=== PATIENT | female | born 1985 | race Caucasian/White ===

== ENCOUNTER 2019-10-29 15:37 | Emergency (ER) | payer BC, SELFPAY ==
[2019-10-29 15:43] VITALS: BP 135/106; PULSE 94; RESP 18; TEMP 36.7; O2SAT 98; BMI 33.0
--- NOTE | 2019-10-29 15:46 | W.ED.SKABFB ---
Documented by User: MAY Alan 10/30/19 07:46 HPI - Skin/Abscess/Foreign Bdy General: Chief complaint: Skin/Abscess/Foreign Body Stated complaint: chin abscess x 5 days Time Seen by Provider: 10/29/19 15:41 Source: patient Mode of arrival: ambulatory Limitations: no limitations History of Present Illness: HPI narrative: Patient is a 34-year-old female who presents to ED today with complaints of a chin abscess; patient states she first noticed abscess approximately a week ago; she was initially put on Bactrim by her PCP but could not keep medication down due to nausea and vomiting; she was subsequently switched to Keflex but this does not seem to be improving her abscess; she was seen in urgent care today and told to come to the emergency department for further evaluation; patient has no history of staph/MRSA; she reports the redness from the abscess is now began to spread down her neck MD complaint: abscess/boil Onset (ago): day(s) Tetanus up to date: yes Location: face Pain Consistency: constant Relieving factors: none Exacerbating factors: none Context: none Associated symptoms: Reports no associated symptoms; Deny chills, fever(s), nausea or vomiting Treatments prior to arrival: antibiotic Review of Systems Const: Denies: fever, chills, body aches, fatigue or malaise Eyes: Denies: change in vision, blurry vision, blind spots, photophobia, eye discomfort, eye redness or floaters ENMT: Denies: throat pain, uvular edema, enlarged tonsils, painful swallowing, hoarseness, mouth pain, swelling of lips/tongue, oral sores/lesions, dental pain, ear pain, ear discharge, tinnitus, nasal discharge, nasal congestion, nasal obstruction, post nasal drip or facial/sinus pain Card: Denies: chest pain GI: Denies: nausea or vomiting Skin/Breast: Reports: other (Abscess to chin) PFSH ED PFSH: Statuses (acute, chronic, etc) shown below reflect problem list status as previously entered and may not be historically accurate Social History Smoking and tobacco status: never smoked Physical Exam Const: COMMON NORMALS: no apparent distress, average body habitus, oriented x3, no limitations, alert and well nourished HENMT: COMMON NORMALS: normocephalic, head/scalp atraumatic, hearing grossly normal bilaterally, external ears normal, external nose normal, nasal mucous membranes and turbinates normal, moist oral mucous membranes, oropharynx normal, dentition normal and gingiva normal HEAD & SCALP: normocephalic and atraumatic FACE & SINUS: other (Patient has large golf ball sized abscess to her chin w/o obvious fluctuance) NOSE: external nose normal and nasal mucous membranes and turbinates normal EXTERNAL EAR: Yes external ears normal MOUTH: oral and palatal mucosa normal, lip normal and tongue normal THROAT: posterior oropharynx normal, tonsils normal and uvula midline; no uvular edema OTHER: She has erythema overlying the abscess and extending down into the anterior portion of her neck; no lymphadenopathy; patient does not have complaints of difficulty or painful swallowing, difficulty breathing, stridor Neuro: COMMON NORMALS: oriented x3 SENSORIUM/ORIENTATION: Yes alert Course Vital Signs: Vital signs: Vital Signs Temperature 98.1 F 10/29/19 15:43 Pulse Rate 76 10/29/19 19:04 Respiratory Rate 16 10/29/19 19:04 Blood Pressure 145/70 10/29/19 19:04 Pulse Oximetry 98 10/29/19 19:04 MDM - Skin/Abscess/Foreign Bdy Lab Data: Labs: Lab Results 10/29/19 10/29/19 Range/Units 16:14 16:14 WBC 14.0 H (4.0-10.0) 10^3/ uL RBC 4.71 (4.1-5.3) 10^6/u L Hgb 14.0 (11.5-15.3) g/dL Hct 42.0 (37.0-47.0) % MCV 89.2 (81-99) fL MCH 29.7 (28.0-34.0) pg MCHC 33.3 (30.0-36.0) g/dL RDW 12.2 (12.1-15.1) % Plt Count 360 (130-400) 10^3/c mm MPV 9.9 (7.4-10.4) fL Neut % (Auto) 61.7 % Lymph % (Auto) 24.7 % [place] % (Auto) 7.1 % Eos % (Auto) 5.1 % Baso % (Auto) 0.9 % Neut # (Auto) 8.6 H (1.8-7.7) 10^3/u L Lymph # (Auto) 3.5 (0.8-4.8) 10^3/u L [place] # (Auto) 1.0 H (0.2-0.9) 10^3/u L Eos # (Auto) 0.7 (0.0-0.8) 10^3/u L Baso # (Auto) 0.1 (0.0-0.1) 10^3/u L Nucleated RBC % (a uto) 0 % Nucleated RBCs # 0.0 /100WBC Sodium 140 (136-145) mmol/L Potassium 3.4 L (3.5-5.1) mmol/L Chloride 100 (98-107) mmol/L Carbon Dioxide 26 (22-29) mmol/L Anion Gap 17.4 (5-19) BUN 4 L (6-20) mg/dL Creatinine 0.9 (0.5-0.9) mg/dL GFR Calculation 71.7 L (90-130) mL/min Glucose 118 H (74-109) mg/dL Calculated Osmolal ity 287 (285-295) mOsm/k g Calcium 9.6 (8.5-10.5) mg/dL Discharge Plan Discharge Patient Disposition: Home, Self-Care Clinical Impression: Abscess of skin or subcutaneous tissue Qualifiers: Site of cutaneous abscess: face Qualified Code(s): L02.01 - Cutaneous abscess of face Condition: Stable Prescriptions: New Bactrim DS 800-160 mg tablet 1 tab PO BID 10 Days Qty: 20 RF: 0 clindamycin HCl 300 mg capsule 300 mg PO Q8H 10 Days Qty: 30 RF: 0 [place] 7.5-325 mg tablet 1 tab PO Q8H Qty: 10 RF: 0 No Action duloxetine [Cymbalta] 60 mg capsule,delayed release(DR/EC) 60 mg PO DAILY RF: 0 cephalexin 500 mg capsule 500 mg PO TID RF: 0 mupirocin 2 % ointment 1 applic TOPICAL DIRECTED RF: 0 Discharge Orders: Discharge Order (Routine); Ordered 10/29/19 Ordered By: Ariella Boo Referrals: Crista Hernandez MD [Primary Care Provider] - 4-7 days Discharge Diet: Advance as tolerated Discharge Activity: Resume usual activity Patient Instructions: Abscess (ED) Discharge Date/Time: 10/29/19 19:05 Coding Level of Care Code ED Activity Leader for Chg Fwd Exam Problem Focused Documented by User: GARCIA Fletcher 10/29/19 18:53 HPI - Skin/Abscess/Foreign Bdy General: Chief complaint: Skin/Abscess/Foreign Body Stated complaint: chin abscess x 5 days Time Seen by Provider: 10/29/19 15:41 PFSH ED PFSH: Statuses (acute, chronic, etc) shown below reflect problem list status as previously entered and may not be historically accurate Social History Smoking and tobacco status: never smoked Course ED course: 1700, received patient from [facility] Hanna, awaiting CT for abscess concern. wjw 1730, Dr. Boo graciously requested to continue care of patient for I&D procedure and discharge. wjw Vital Signs: Vital signs: Vital Signs Temperature 98.1 F 10/29/19 15:43 Pulse Rate 76 10/29/19 19:04 Respiratory Rate 16 10/29/19 19:04 Blood Pressure 145/70 10/29/19 19:04 Pulse Oximetry 98 10/29/19 19:04 MDM - Skin/Abscess/Foreign Bdy Lab Data: Labs: Lab Results 10/29/19 10/29/19 Range/Units 16:14 16:14 WBC 14.0 H (4.0-10.0) 10^3/ uL RBC 4.71 (4.1-5.3) 10^6/u L Hgb 14.0 (11.5-15.3) g/dL Hct 42.0 (37.0-47.0) % MCV 89.2 (81-99) fL MCH 29.7 (28.0-34.0) pg MCHC 33.3 (30.0-36.0) g/dL RDW 12.2 (12.1-15.1) % Plt Count 360 (130-400) 10^3/c mm MPV 9.9 (7.4-10.4) fL Neut % (Auto) 61.7 % Lymph % (Auto) 24.7 % [place] % (Auto) 7.1 % Eos % (Auto) 5.1 % Baso % (Auto) 0.9 % Neut # (Auto) 8.6 H (1.8-7.7) 10^3/u L Lymph # (Auto) 3.5 (0.8-4.8) 10^3/u L [place] # (Auto) 1.0 H (0.2-0.9) 10^3/u L Eos # (Auto) 0.7 (0.0-0.8) 10^3/u L Baso # (Auto) 0.1 (0.0-0.1) 10^3/u L Nucleated RBC % (a uto) 0 % Nucleated RBCs # 0.0 /100WBC Sodium 140 (136-145) mmol/L Potassium 3.4 L (3.5-5.1) mmol/L Chloride 100 (98-107) mmol/L Carbon Dioxide 26 (22-29) mmol/L Anion Gap 17.4 (5-19) BUN 4 L (6-20) mg/dL Creatinine 0.9 (0.5-0.9) mg/dL GFR Calculation 71.7 L (90-130) mL/min Glucose 118 H (74-109) mg/dL Calculated Osmolal ity 287 (285-295) mOsm/k g Calcium 9.6 (8.5-10.5) mg/dL Discharge Plan Discharge Patient Disposition: Home, Self-Care Clinical Impression: Abscess of skin or subcutaneous tissue Qualifiers: Site of cutaneous abscess: face Qualified Code(s): L02.01 - Cutaneous abscess of face Condition: Stable Prescriptions: New Bactrim DS 800-160 mg tablet 1 tab PO BID 10 Days Qty: 20 RF: 0 clindamycin HCl 300 mg capsule 300 mg PO Q8H 10 Days Qty: 30 RF: 0 [place] 7.5-325 mg tablet 1 tab PO Q8H Qty: 10 RF: 0 No Action duloxetine [Cymbalta] 60 mg capsule,delayed release(DR/EC) 60 mg PO DAILY RF: 0 cephalexin 500 mg capsule 500 mg PO TID RF: 0 mupirocin 2 % ointment 1 applic TOPICAL DIRECTED RF: 0 Discharge Orders: Discharge Order (Routine); Ordered 10/29/19 Ordered By: Ariella Boo Referrals: Crista Hernandez MD [Primary Care Provider] - 4-7 days Discharge Diet: Advance as tolerated Discharge Activity: Resume usual activity Patient Instructions: Abscess (ED) Discharge Date/Time: 10/29/19 19:05 Coding Level of Care Code ED Activity Leader for Chg Fwd Exam Problem Focused Documented by User: Ariella Boo MD 10/29/19 17:35 HPI - Skin/Abscess/Foreign Bdy General: Chief complaint: Skin/Abscess/Foreign Body Stated complaint: chin abscess x 5 days Time Seen by Provider: 10/29/19 15:41 PFSH ED PFSH: Statuses (acute, chronic, etc) shown below reflect problem list status as previously entered and may not be historically accurate Social History Smoking and tobacco status: never smoked Course Vital Signs: Vital signs: Vital Signs Temperature 98.1 F 10/29/19 15:43 Pulse Rate 76 10/29/19 19:04 Respiratory Rate 16 10/29/19 19:04 Blood Pressure 145/70 10/29/19 19:04 Pulse Oximetry 98 10/29/19 19:04 MDM - Skin/Abscess/Foreign Bdy Lab Data: Labs: Lab Results 10/29/19 10/29/19 Range/Units 16:14 16:14 WBC 14.0 H (4.0-10.0) 10^3/ uL RBC 4.71 (4.1-5.3) 10^6/u L Hgb 14.0 (11.5-15.3) g/dL Hct 42.0 (37.0-47.0) % MCV 89.2 (81-99) fL MCH 29.7 (28.0-34.0) pg MCHC 33.3 (30.0-36.0) g/dL RDW 12.2 (12.1-15.1) % Plt Count 360 (130-400) 10^3/c mm MPV 9.9 (7.4-10.4) fL Neut % (Auto) 61.7 % Lymph % (Auto) 24.7 % [place] % (Auto) 7.1 % Eos % (Auto) 5.1 % Baso % (Auto) 0.9 % Neut # (Auto) 8.6 H (1.8-7.7) 10^3/u L Lymph # (Auto) 3.5 (0.8-4.8) 10^3/u L [place] # (Auto) 1.0 H (0.2-0.9) 10^3/u L Eos # (Auto) 0.7 (0.0-0.8) 10^3/u L Baso # (Auto) 0.1 (0.0-0.1) 10^3/u L Nucleated RBC % (a uto) 0 % Nucleated RBCs # 0.0 /100WBC Sodium 140 (136-145) mmol/L Potassium 3.4 L (3.5-5.1) mmol/L Chloride 100 (98-107) mmol/L Carbon Dioxide 26 (22-29) mmol/L Anion Gap 17.4 (5-19) BUN 4 L (6-20) mg/dL Creatinine 0.9 (0.5-0.9) mg/dL GFR Calculation 71.7 L (90-130) mL/min Glucose 118 H (74-109) mg/dL Calculated Osmolal ity 287 (285-295) mOsm/k g Calcium 9.6 (8.5-10.5) mg/dL Imaging Data^: ct neck: Radiologist's impression: Ordering Provider/Ordering MD: Ally Downing Date of Service: 10/29/19 Procedure(s): CT neck w con* [id number] Accession Number(s): [id number] Report Number: [id number] PROCEDURE INFORMATION: Exam: CT Neck With Contrast Exam date and time: 10/29/2019 4:10 PM Age: 34 years old Clinical indication: Abscess, cutaneous; Patient HX: Abscess to chin x 5 days; Additional info: Chin abscess; Get from chin down please TECHNIQUE: Imaging protocol: Computed tomography images of the neck with intravenous contrast. Total DLP: 606.6 mGy-cm Radiation optimization: All CT scans at this facility use at least one of these dose optimization techniques: automated exposure control; mA and/or kV adjustment per patient size (includes targeted exams where dose is matched to clinical indication); or iterative reconstruction. Contrast material: OMNI 300; Contrast volume: 95 ml; Contrast route: 20G; COMPARISON: No relevant prior studies available. FINDINGS: Sinuses: Small polyp versus retention cyst in the right maxillary sinus. Prominent bilateral submandibular lymph nodes are most likely reactive. Nasopharynx: Unremarkable. Oropharynx: Unremarkable. No significant tonsillar enlargement. Hypopharynx: Unremarkable Larynx: Unremarkable. Normal epiglottis. Retropharyngeal space: Unremarkable. Submandibular/Parotid glands: Normal. Glands are normal in size. Thyroid: Normal. No enlarged or calcified nodules. Lymph nodes: See Sinuses Finding. Trachea: Visualized trachea is unremarkable. Lungs: Unremarkable as visualized. Dental: The lower teeth appear intact. No periapical infection visualized. Bones/joints: Unremarkable. No acute fracture. Soft tissues: Skin thickening and subcutaneous soft tissue stranding anterior to the mandible. 0.8 cm oval subcutaneous abscess extending to the anterior skin surface, just to the right of midline. CT/CT neck w con* [id number] IMPRESSION: 1. 0.8 cm subcutaneous abscess and surrounding cellulitis in the premandibular soft tissues. 2. Reactive submandibular lymph nodes Discharge Plan Discharge Patient Disposition: Home, Self-Care Clinical Impression: Abscess of skin or subcutaneous tissue Qualifiers: Site of cutaneous abscess: face Qualified Code(s): L02.01 - Cutaneous abscess of face Condition: Stable Prescriptions: New Bactrim DS 800-160 mg tablet 1 tab PO BID 10 Days Qty: 20 RF: 0 clindamycin HCl 300 mg capsule 300 mg PO Q8H 10 Days Qty: 30 RF: 0 [place] 7.5-325 mg tablet 1 tab PO Q8H Qty: 10 RF: 0 No Action duloxetine [Cymbalta] 60 mg capsule,delayed release(DR/EC) 60 mg PO DAILY RF: 0 cephalexin 500 mg capsule 500 mg PO TID RF: 0 mupirocin 2 % ointment 1 applic TOPICAL DIRECTED RF: 0 Discharge Orders: Discharge Order (Routine); Ordered 10/29/19 Ordered By: Ariella Boo Referrals: Crista Hernandez MD [Primary Care Provider] - 4-7 days Discharge Diet: Advance as tolerated Discharge Activity: Resume usual activity Patient Instructions: Abscess (ED) Discharge Date/Time: 10/29/19 19:05 Coding Level of Care Code ED Activity Leader for Chg Fwd Exam Problem Focused
--- NOTE | 2019-10-29 15:55 | CTR_ITS ---
PROCEDURE INFORMATION: Exam: CT Neck With Contrast Exam date and time: 10/29/2019 4:10 PM Age: 34 years old Clinical indication: Abscess, cutaneous; Patient HX: Abscess to chin x 5 days; Additional info: Chin abscess; Get from chin down please TECHNIQUE: Imaging protocol: Computed tomography images of the neck with intravenous contrast. Total DLP: 606.6 mGy-cm Radiation optimization: All CT scans at this facility use at least one of these dose optimization techniques: automated exposure control; mA and/or kV adjustment per patient size (includes targeted exams where dose is matched to clinical indication); or iterative reconstruction. Contrast material: [place]NI 300; Contrast volume: 95 ml; Contrast route: 20G; COMPARISON: No relevant prior studies available. FINDINGS: Sinuses: Small polyp versus retention cyst in the right maxillary sinus. Prominent bilateral submandibular lymph nodes are most likely reactive. Nasopharynx: Unremarkable. Oropharynx: Unremarkable. No significant tonsillar enlargement. Hypopharynx: Unremarkable Larynx: Unremarkable. Normal epiglottis. Retropharyngeal space: Unremarkable. Submandibular/Parotid glands: Normal. Glands are normal in size. Thyroid: Normal. No enlarged or calcified nodules. Lymph nodes: See Sinuses Finding. Trachea: Visualized trachea is unremarkable. Lungs: Unremarkable as visualized. Dental: The lower teeth appear intact. No periapical infection visualized. Bones/joints: Unremarkable. No acute fracture. Soft tissues: Skin thickening and subcutaneous soft tissue stranding anterior to the mandible. 0.8 cm oval subcutaneous abscess extending to the anterior skin surface, just to the right of midline. CT/CT neck w con* [id number] IMPRESSION: 1. 0.8 cm subcutaneous abscess and surrounding cellulitis in the premandibular soft tissues. 2. Reactive submandibular lymph nodes. Radiation Dose CTDIVOL = (mGy): DLP = 606.6 (mGy-cm)
[2019-10-29 16:22] LABS: Basophils # 0.1 10^3/uL (0.0-0.1); Basophils % 0.9 %; Eosinophils # 0.7 10^3/uL (0.0-0.8); Eosinophils % 5.1 %; Lymphocytes # 3.5 10^3/uL (0.8-4.8); Lymphocytes % 24.7 %; Mean Corpuscular HGB Conc 33.3 g/dL (30.0-36.0); Mean Corpuscular Hemoglobin 29.7 pg (28.0-34.0); Mean Corpuscular Volume 89.2 fL (81-99); Mean Platelet Volume 9.9 fL (7.4-10.4); Monocytes % 7.1 %; Neutrophils # 8.6 10^3/uL (1.8-7.7); Neutrophils % 61.7 %; Nucleated Red Blood Cells % 0 %; Platelet Count 360 10^3/cmm (130-400); Red Blood Count 4.71 10^6/uL (4.1-5.3); Red Cell Distribution Width 12.2 % (12.1-15.1)
[2019-10-29] MEDS: vancomycin 1,000 MG in sodium chloride 0.9% 250 ML 250 MG IV (16:29)
[2019-10-29] MEDS: iohexol 300 mg/mL 100 mL Btl IV (16:36)
[2019-10-29 16:41] LABS: Anion Gap 17.4 (5-19); Blood Urea Nitrogen 4 mg/dL (6-20); Calcium 9.6 mg/dL (8.5-10.5); Carbon Dioxide 26 mmol/L (22-29); Chloride 100 mmol/L (98-107); Glomerular Filtration Rate 71.7 mL/min (90-130); Glucose 118 mg/dL (74-109); Osmolality Calculated 287 mOsm/kg (285-295); Potassium 3.4 mmol/L (3.5-5.1); Sodium 140 mmol/L (136-145)
[2019-10-29] MEDS: LORazepam 2 mg/mL INJ 1 mL 1 MG IVP (17:47)
[2019-10-29 18:26] VITALS: RESP 18; O2SAT 96
[2019-10-29] MEDS: morphine 4 mg/mL SDV 1 mL IVP (18:26)
[2019-10-29] MEDS: ondansetron 2 mg/ML SDV 2 mL 4 MG IVP (18:27)
[2019-10-29 19:04] VITALS: BP 145/70; PULSE 76; RESP 16; O2SAT 98
--- NOTE | 2019-10-30 13:20 | W.ED.SKABFB ---
HPI - Skin/Abscess/Foreign Bdy General: Chief complaint: Skin/Abscess/Foreign Body Stated complaint: chin abscess x 5 days Time Seen by Provider: 10/29/19 15:41 Source: patient Mode of arrival: ambulatory Limitations: no limitations History of Present Illness: MD complaint: abscess/boil Location: face Relieving factors: none Exacerbating factors: none PFSH ED PFSH: Statuses (acute, chronic, etc) shown below reflect problem list status as previously entered and may not be historically accurate Social History Smoking and tobacco status: never smoked Procedures Abscess I/D Site: face Local Anesthetic: lidocaine 1% Amount of anesthesia used (mL): 6 Technique: incised with #11 blade Irrigation: Yes Packing used?: none Complications: pain Course Vital Signs: Vital signs: Vital Signs Temperature 98.1 F 10/29/19 15:43 Pulse Rate 76 10/29/19 19:04 Respiratory Rate 16 10/29/19 19:04 Blood Pressure 145/70 10/29/19 19:04 Pulse Oximetry 98 10/29/19 19:04 MDM - Skin/Abscess/Foreign Bdy MDM Narrative: Medical decision making narrative: Pt presents here with abscess to anterior chin. the abscess was incisde and drained. pt is to take clindamycin. pt stable for discharge. Lab Data: Labs: Lab Results 10/29/19 10/29/19 Range/Units 16:14 16:14 WBC 14.0 H (4.0-10.0) 10^3/ uL RBC 4.71 (4.1-5.3) 10^6/u L Hgb 14.0 (11.5-15.3) g/dL Hct 42.0 (37.0-47.0) % MCV 89.2 (81-99) fL MCH 29.7 (28.0-34.0) pg MCHC 33.3 (30.0-36.0) g/dL RDW 12.2 (12.1-15.1) % Plt Count 360 (130-400) 10^3/c mm MPV 9.9 (7.4-10.4) fL Neut % (Auto) 61.7 % Lymph % (Auto) 24.7 % [place] % (Auto) 7.1 % Eos % (Auto) 5.1 % Baso % (Auto) 0.9 % Neut # (Auto) 8.6 H (1.8-7.7) 10^3/u L Lymph # (Auto) 3.5 (0.8-4.8) 10^3/u L [place] # (Auto) 1.0 H (0.2-0.9) 10^3/u L Eos # (Auto) 0.7 (0.0-0.8) 10^3/u L Baso # (Auto) 0.1 (0.0-0.1) 10^3/u L Nucleated RBC % (a uto) 0 % Nucleated RBCs # 0.0 /100WBC Sodium 140 (136-145) mmol/L Potassium 3.4 L (3.5-5.1) mmol/L Chloride 100 (98-107) mmol/L Carbon Dioxide 26 (22-29) mmol/L Anion Gap 17.4 (5-19) BUN 4 L (6-20) mg/dL Creatinine 0.9 (0.5-0.9) mg/dL GFR Calculation 71.7 L (90-130) mL/min Glucose 118 H (74-109) mg/dL Calculated Osmolal ity 287 (285-295) mOsm/k g Calcium 9.6 (8.5-10.5) mg/dL Discharge Plan Discharge Patient Disposition: Home, Self-Care Clinical Impression: Abscess of skin or subcutaneous tissue Qualifiers: Site of cutaneous abscess: face Qualified Code(s): L02.01 - Cutaneous abscess of face Condition: Stable Prescriptions: New Bactrim DS 800-160 mg tablet 1 tab PO BID 10 Days Qty: 20 RF: 0 clindamycin HCl 300 mg capsule 300 mg PO Q8H 10 Days Qty: 30 RF: 0 [place] 7.5-325 mg tablet 1 tab PO Q8H Qty: 10 RF: 0 No Action duloxetine [Cymbalta] 60 mg capsule,delayed release(DR/EC) 60 mg PO DAILY RF: 0 cephalexin 500 mg capsule 500 mg PO TID RF: 0 mupirocin 2 % ointment 1 applic TOPICAL DIRECTED RF: 0 Discharge Orders: Discharge Order (Routine); Ordered 10/29/19 Ordered By: Ariella Boo Referrals: Crista Hernandez MD [Primary Care Provider] - 4-7 days Discharge Diet: Advance as tolerated Discharge Activity: Resume usual activity Patient Instructions: Abscess (ED) Discharge Date/Time: 10/29/19 19:05 Coding Level of Care Code ED Sr. [employer] System Administrator for Olu Galarza
== END 2019-10-29 19:05 | disposition home or self-care (01) ==
PROVIDERS: Physician Assistant; Emergency Provider Emergency Medicine; PCP Family Medicine
DX: L02.01 Cutaneous abscess of face (principal)
CPT/HCPCS: 10060; 36415; 70491; 80048; 85025; 87070; 87077; 87186; 96365; 96372; 96374; 96375; 99282; 99283; J2001; J2060; J2270; J2405; J3370; J7050; Q9967

== ENCOUNTER → 2022-07-21 10:17 | Outpatient (BNVA) | payer BC, SELFPAY | PROVIDERS: PCP Family Medicine; Visit Provider Nurse Practitioner Family | DX: R10.9 Unspecified abdominal pain (principal); R11.10 Vomiting, unspecified; R42 Dizziness and giddiness; R73.09 Other abnormal glucose | CPT/HCPCS: 80053; 81000; 83036; 85025; 86003; 86008 ==

== ENCOUNTER → 2025-04-26 08:30 | Outpatient (BNVA) | payer OTHER, SELFPAY | PROVIDERS: PCP Nurse Practitioner Family; Visit Provider Nurse Practitioner Family | DX: E83.42 Hypomagnesemia (principal); R73.09 Other abnormal glucose | CPT/HCPCS: 80053; 83036; 83735; 85025 ==